=== PATIENT | female | born 1925 | race American Indian/Alaskan Native ===

== ENCOUNTER 2016-07-24 11:43 | Day surgery (SDC) | payer MEDICARE ==
[~2016-07-24 11:43] MED LIST: IOPIDINE OU ONE; MYDRIACYL OU ONE; NEOFRIN OU ONE
[2016-07-24] MEDS ORDERED: NEOFRIN ONE (11:55)
[2016-07-24] MEDS ORDERED: MYDRIACYL ONE (11:56)
[2016-07-24] MEDS ORDERED: IOPIDINE ONE (11:57)
[2016-07-24] MEDS ORDERED: IOPIDINE OD ONE (12:44)
[2016-07-24] MEDS ORDERED: MYDRIACYL OD ONE (12:44)
[2016-07-24] MEDS ORDERED: NEOFRIN OD ONE (12:44)
[2016-07-24 13:34] VITALS: BP 130/70
== END 2016-07-24 13:32 | disposition home or self-care (01) ==
LOC: OR 11:43
PROVIDERS: ATTEND Specialist
DX: H26.491 Other secondary cataract, right eye (principal); E78.00 Pure hypercholesterolemia, unspecified; I12.9 Hypertensive chronic kidney disease with stage 1 through stage 4 chronic kidney disease, or unspecified chronic kidney disease; N18.3 Chronic kidney disease, stage 3 (moderate)
CPT/HCPCS: 82962

== ENCOUNTER 2016-08-07 11:13 | Day surgery (SDC) | payer MEDICARE ==
[~2016-08-07 11:13] MED LIST changes: +IOPIDINE ONE; +IOPIDINE OS ONE; -IOPIDINE OU ONE; +MYDRIACYL ONE; +MYDRIACYL OS ONE; -MYDRIACYL OU ONE; +NEOFRIN ONE; +NEOFRIN OS ONE; -NEOFRIN OU ONE
[2016-08-07 12:07] VITALS: BP 140/84
[2016-08-07] MEDS ORDERED: IOPIDINE OS ONE (12:19)
[2016-08-07] MEDS ORDERED: MYDRIACYL OS ONE (12:19)
[2016-08-07] MEDS ORDERED: NEOFRIN OS ONE (12:19)
== END 2016-08-07 11:14 | disposition home or self-care (01) ==
LOC: OR 11:13
PROVIDERS: ATTEND Specialist
DX: E11.36 Type 2 diabetes mellitus with diabetic cataract (principal); H26.492 Other secondary cataract, left eye; I10 Essential (primary) hypertension; E03.9 Hypothyroidism, unspecified; Z90.710 Acquired absence of both cervix and uterus; Z85.038 Personal history of other malignant neoplasm of large intestine
CPT/HCPCS: 82962

== ENCOUNTER 2017-01-22 10:45 | Outpatient (CLI) | payer MEDICARE ==
--- NOTE | 2017-01-22 13:03 | Mammography Report ---
BILATERAL DIGITAL SCREENING MAMMOGRAM with CAD: 01/22/17 10:45:00 CLINICAL: Routine screening. COMPARISON:None available. Her previous mammogram was in [place] 2 years ago. FINDINGS: There are scattered areas of fibroglandular density.Bilateral benign calcifications including vascular calcifications. No mass, architectural distortion or suspicious calcifications. IMPRESSION: No mammographic evidence of malignancy. BI-RADS CATEGORY: 2 -- Benign RECOMMENDATION: Routine mammographic screening in one year. COMMENT: Patient follow-up letters are generated by our [employer] application.
== END 2017-01-22 10:46 | disposition home or self-care (01) ==
LOC: SPVWC 10:45
PROVIDERS: ATTEND Family Medicine
DX: Z12.31 Encounter for screening mammogram for malignant neoplasm of breast (principal)
CPT/HCPCS: 77067; G0202